=== PATIENT | male | born 1980 | race Two or more races ===

== ENCOUNTER → 2016-06-27 | Outpatient (REF) | payer OTHER ==
[2016-06-27 12:45] LABS: BASO % 0.4 % (0.0-1.0); LARGE UNSTAINED CELL # 0.1 K/mm3 (0.0-0.4); LARGE UNSTAINED CELL % 1.4 % (0.0-4.0); LYMPH # 1.4 K/mm3 (1.5-4.5); LYMPH % 27.3 % (24.0-44.0); MEAN CORPUSCULAR HEMOGLOBIN 27.8 pg (27.0-33.0); MEAN CORPUSCULAR HGB CONC 32.9 g/dl (32.0-36.5); MEAN CORPUSCULAR VOLUME 84.7 fl (80.0-96.0); MONO # 0.4 K/mm3 (0.0-0.8); MONO % 7.2 % (0.0-5.0); NEUTROPHILS # 3.1 K/mm3 (1.8-7.7); NEUTROPHILS % 62.8 % (36.0-66.0); PLATELET COUNT, AUTOMATED 201 k/mm3 (150-450); RED CELL DISTRIBUTION WIDTH 11.9 % (11.5-14.5); WHITE BLOOD COUNT 4.9 K/mm3 (4.0-10.0)
[2016-06-27 12:55] LABS: ALBUMIN 4.5 GM/DL (3.2-5.2); ALBUMIN/GLOBULIN RATIO 1.61 (1.00-1.93); ALKALINE PHOSPHATASE 43 U/L (45-117); ALT/SGPT 44 U/L (12-78); ANION GAP 9 MEQ/L (8-16); AST/SGOT 22 U/L (15-37); BILIRUBIN,TOTAL 0.8 MG/DL (0.2-1.0); BLOOD UREA NITROGEN 12 MG/DL (7-18); CALCIUM LEVEL 9.8 MG/DL (8.5-10.1); CARBON DIOXIDE LEVEL 29 MEQ/L (21-32); CHLORIDE LEVEL 103 MEQ/L (98-107); CHOLESTEROL LEVEL 134 MG/DL (<200); CREATININE FOR GFR 0.94 MG/DL (0.70-1.30); GLOMERULAR FILTRATION RATE > 60.0 (>60); GLUCOSE, FASTING 101 MG/DL (70-105); POTASSIUM SERUM 4.5 MEQ/L (3.5-5.1); SODIUM LEVEL 141 MEQ/L (136-145); TOTAL PROTEIN 7.3 GM/DL (6.4-8.2); TRIGLYCERIDES LEVEL 75 MG/DL (<150)
== END ==
LOC: M SFHCADAM 10:02
PROVIDERS: ATTEND Family Medicine
DX: Z00.00 Encounter for general adult medical examination without abnormal findings (principal)

== ENCOUNTER → 2016-09-19 | Outpatient (CLI) | payer OTHER ==
[~2016-09-19] VITALS: Ht 177.8 cm; Wt 80.7 kg
[~2016-09-19] MED LIST: LIDOCAINE 2% INJ 100 MG/5 ML SDV (FOR ANES.) As Ordered ONE; NS 1,000 ML IV ONE; PANT40TA2 PO; PROPOFOL 200 MG/20 ML VIAL As Ordered ONE; fentaNYL 100 MCG/2 ML INJECTION (J3010) As Ordered ONE
--- NOTE | 2016-09-19 15:25 | ROOR ---
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 No Referring Physician 1. No Referring Physician, Admin. Requesting Provider: Medicines: Monitored Anesthesia Care Complications: No immediate complications. Procedure: Pre-Anesthesia Assessment: - The heart rate, respiratory rate, oxygen saturations, blood pressure, adequacy of pulmonary ventilation, and response to care were monitored throughout the procedure. The Endoscope was introduced through the mouth, and advanced to the second part of duodenum. The upper GI endoscopy was accomplished without difficulty. The patient tolerated the procedure well. Findings: The Z-line was variable and was found 35 to 37 cm from the incisors. (three fingers/tongues of salmon colored mucosa from 35 to 37 cm from incisors suspicious for recurrent barretts esophagus.) This was biopsied with a cold forceps for histology. The entire examined stomach was normal. The examined duodenum was normal. Impression: - Z-line variable, 35 to 37 cm from the incisors (three tongues of salmon colored mucosa fro 35 to 37 cm suggestive of recurrent barretts esophagus). Biopsied. - Normal stomach. - Normal examined duodenum. Recommendation: - Use Protonix (pantoprazole) 40 mg PO BID indefinitely. - Telephone endoscopist for pathology results in 2 weeks. - (If biopsies show recurrent barretts esophagus, consideration may be given to repeat ablation treatment) Gary Jay MD Gary JAY MD 09/19/2016 3:24:46 PM This report has been signed electronically. Number of Addenda: 0 Note Initiated On: 09/19/2016 2:53 PM Estimated Blood Loss: Estimated blood loss: none.
[2016-09-19 15:40] VITALS: BP 137/86
== END ==
LOC: M OPP 12:39
PROVIDERS: ATTEND Internal Medicine Gastroenterology
DX: Z09 Encounter for follow-up examination after completed treatment for conditions other than malignant neoplasm (principal); K22.70 Barrett's esophagus without dysplasia; K22.8 Other specified diseases of esophagus; K21.9 Gastro-esophageal reflux disease without esophagitis; F17.200 Nicotine dependence, unspecified, uncomplicated; Z79.899 Other long term (current) drug therapy

== ENCOUNTER 2017-01-01 06:32 | Day surgery (SDC) | payer OTHER ==
[~2017-01-01] VITALS: Ht 177.8 cm; Wt 79.4 kg
[~2017-01-01 06:32] MED LIST changes: +DEXI60CA2 PO; -LIDOCAINE 2% INJ 100 MG/5 ML SDV (FOR ANES.) As Ordered ONE; -NS 1,000 ML IV ONE; -PROPOFOL 200 MG/20 ML VIAL As Ordered ONE; -fentaNYL 100 MCG/2 ML INJECTION (J3010) As Ordered ONE
[2017-01-01] MEDS ORDERED: LR 1,000 ML IV SCH ×2 (06:45→08:15)
[2017-01-01] MEDS ORDERED: SUCCINYLCHOLINE 100 MG/5 ML SYRINGE (J0330) As Ordered ONE (07:11)
[2017-01-01] MEDS ORDERED: ROCURONIUM BROMIDE 50 MG/5 ML VIAL/SYRINGE As Ordered ONE (07:11)
[2017-01-01] MEDS ORDERED: PROPOFOL 200 MG/20 ML VIAL As Ordered ONE (07:12)
[2017-01-01] MEDS ORDERED: ONDANSETRON 4MG/2ML VIAL (J2405) As Ordered ONE (07:12)
[2017-01-01] MEDS ORDERED: MIDAZOLAM INJ 2 MG/2 ML VIAL (J2250) As Ordered ONE (07:12)
[2017-01-01] MEDS ORDERED: fentaNYL 100 MCG/2 ML INJECTION (J3010) As Ordered ONE (07:42)
--- NOTE | 2017-01-01 08:10 | ROOR ---
Patient Name: Desmond Diaz Procedure Date: 01/01/2017 7:20 AM Date of : 1980 Age: 36 Room: Main OR Gender: Male Note Status: Finalized Procedure: Upper GI endoscopy Indications: For therapy of Covington's esophagus Providers: Gary JAY MD Referring MD: 1. No Referring Physician 1. No Referring Physician, Admin. Requesting Provider: Medicines: General Anesthesia Complications: No immediate complications. Procedure: Pre-Anesthesia Assessment: - The heart rate, respiratory rate, oxygen saturations, blood pressure, adequacy of pulmonary ventilation, and response to care were monitored throughout the procedure. The Endoscope was introduced through the mouth, and advanced to the second part of duodenum. The upper GI endoscopy was accomplished without difficulty. The patient tolerated the procedure well. Findings: The esophagus and gastroesophageal junction were examined with white light and narrow band imaging (NBI) from a forward view and retroflexed position. There were esophageal mucosal changes consistent with short-segment Covington's esophagus. These changes involved the mucosa at the upper extent of the gastric folds (40 cm from the incisors) extending to the Z-line (37 cm from the incisors). Circumferential salmon-colored mucosa was present from 37 to 39 cm and three tongues of salmon-colored mucosa were present from 39 to 40 cm. The maximum longitudinal extent of these esophageal mucosal changes was 3 cm in length. Circumferential radiofrequency ablation of Covington's esophagus was performed using the [employer] 360 Express catheter and balloon-based endoscopic ablation system. With the endoscope in place, the position and extent of the Covington's mucosa and the anatomic landmarks were noted. Endoscopic visualization identified an ablation site including the entire visible Covington's segment. The Covington's mucosa was irrigated with water. A guidewire was passed down the biopsy channel of the endoscope. As the endoscope was withdrawn from the mouth, the guidewire was left in place. An auto-sizing radiofrequency ablation balloon catheter was passed transorally over the guidewire into the esophagus. The endoscope was introduced in a [id number] manner with the ablation catheter. Under direct endoscopic visualization, the balloon ablation catheter was positioned appropriately. The balloon was automatically inflated, and energy was applied at 10 J/cm2. The balloon electrode was moved 4 cm distally, so that the proximal edge of the electrode was aligned with the distal edge of the ablation zone. The process of balloon inflation and ablation was repeated until the top of the gastric folds was reached. The ablation catheter and guidewire were removed, and the balloon was cleaned. The ablation zone was then cleaned of overlying coagulative debris using irrigation and suction via the endoscope and a cleaning cap. The guidewire was reinserted, and then the ablation catheter was reintroduced into the esophagus over the wire. The ablation catheter was positioned under direct endoscopic visualization so that the proximal edge of the electrode was at the proximal edge of the ablation zone. Reinflation and a second round of ablation were performed with the application of 10 J/cm2 to re-treat the Covington's epithelium already treated with the first round of ablation. The ablation catheter and guidewire were then removed. The areas of the esophagus where Covington's mucosa had been ablated were then examined with the endoscope. Areas of visible Covington's esophagus were completely ablated. Small Hiatal Hernia. The exam was otherwise without abnormality. Impression: - Esophageal mucosal changes consistent with short-segment Covington's esophagus. Treated with radiofrequency ablation. - Small Hiatal Hernia. - The examination was otherwise normal. - No specimens collected. Recommendation: - Repeat upper endoscopy in 3 months for retreatment. - My Office will call you shortly to re-schedule for the next treatment session. Start a full liquid diet today. Eat a soft diet for one week. Continue your usual Reflux medication (dexilant) indefinitely. You may not need pain medications, but I would recommend you fill the scripts provided, just in case: 1) Viscous Lidocaine 2%- 5 ml every 4 hrs as needed for modeate chest pain. 2) Carafate suspension-10 ml every 6-8 hrs for 1 month. Gary Jay MD Gary JAY MD 01/01/2017 8:10:16 AM This report has been signed electronically. Number of Addenda: 0 Note Initiated On: 01/01/2017 7:20 AM Estimated Blood Loss: Estimated blood loss: none.
[2017-01-01] MEDS ORDERED: ONDANSETRON 4MG/2ML VIAL (J2405) IV PRN (08:15)
[2017-01-01] MEDS ORDERED: PERCOCET 5MG/325MG TAB PO PRN (08:15)
[2017-01-01] MEDS ORDERED: fentaNYL 100 MCG/2 ML INJECTION (J3010) IV PRN (08:15)
[2017-01-01 09:25] VITALS: BP 121/74
== END 2017-01-01 09:57 | disposition home or self-care (01) ==
LOC: M SDC 06:32
PROVIDERS: ATTEND Internal Medicine Gastroenterology
DX: K22.70 Barrett's esophagus without dysplasia (principal); K44.9 Diaphragmatic hernia without obstruction or gangrene; Z79.899 Other long term (current) drug therapy; Z72.0 Tobacco use

== ENCOUNTER → 2017-03-24 | Outpatient (CLI) | payer OTHER ==
[2017-03-24 19:18] LABS: BASO % 0.4 % (0.0-1.0); EOS # 0.1 10^3/uL (0.0-0.50); EOS % 1.6 % (0.0-3.0); IMMATURE GRANULOCYTE % 0.1 % (0-0); LYMPH # 1.4 10^3/uL (1.5-4.5); LYMPH % 20.8 % (24.0-44.0); MEAN CORPUSCULAR HEMOGLOBIN 27.5 pg (27.0-33.0); MEAN CORPUSCULAR HGB CONC 32.4 g/dl (32.0-36.5); MONO # 0.6 10^3/uL (0.0-0.8); NEUTROPHILS # 4.5 10^3/uL (1.8-7.7); NEUTROPHILS % 68.1 % (36.0-66.0); PLATELET COUNT, AUTOMATED 229 10^3/uL (150-450); RED CELL DISTRIBUTION WIDTH 12.8 % (11.5-14.5); WHITE BLOOD COUNT 6.7 10^3/uL (4.0-10.0)
[2017-03-24 19:46] LABS: ALBUMIN 4.5 GM/DL (3.2-5.2); ALKALINE PHOSPHATASE 48 U/L (45-117); ALT/SGPT 27 U/L (12-78); ANION GAP 8 MEQ/L (8-16); AST/SGOT 17 U/L (7-37); BILIRUBIN,TOTAL 0.6 MG/DL (0.2-1.0); BLOOD UREA NITROGEN 13 MG/DL (7-18); CALCIUM LEVEL 9.1 MG/DL (8.5-10.1); CARBON DIOXIDE LEVEL 30 MEQ/L (21-32); CHLORIDE LEVEL 104 MEQ/L (98-107); FREE T4 0.95 NG/DL (0.76-1.46); GLOMERULAR FILTRATION RATE > 60.0 (>60); GLUCOSE, FASTING 93 MG/DL (70-105); POTASSIUM SERUM 4.8 MEQ/L (3.5-5.1); SODIUM LEVEL 142 MEQ/L (136-145); TOTAL PROTEIN 7.5 GM/DL (6.4-8.2)
[2017-03-27 00:07] LABS: Lyme Disease IgG/IgM Antibodie <0.91 ISR (0.00-0.90); Lyme Disease IgM Ab Quantitati <0.80 index (0.00-0.79)
== END ==
LOC: M ADAMS 15:13
PROVIDERS: ATTEND Physician Assistant
DX: R53.83 Other fatigue (principal)

== ENCOUNTER 2017-04-28 11:22 | Day surgery (SDC) | payer OTHER ==
[2017-04-28] MEDS: LR 1,000 ML IV (12:00)
[2017-04-28] MEDS ORDERED: LIDOCAINE 2% INJ 100 MG/5 ML SDV (FOR ANES.) As Ordered (12:47)
[2017-04-28] MEDS ORDERED: SUCCINYLCHOLINE 100 MG/5 ML SYRINGE (J0330) As Ordered (12:47)
[2017-04-28] MEDS ORDERED: PROPOFOL 200 MG/20 ML VIAL As Ordered (12:47)
[2017-04-28] MEDS ORDERED: MIDAZOLAM INJ 2 MG/2 ML VIAL (J2250) As Ordered (12:48)
[2017-04-28] MEDS ORDERED: fentaNYL 100 MCG/2 ML INJECTION (J3010) As Ordered (12:48)
[2017-04-28] MEDS ORDERED: ONDANSETRON 4MG/2ML VIAL (J2405) As Ordered (13:31)
[2017-04-28] MEDS: ACETYLCYSTEINE 20% 30 ML VIAL As Ordered (14:20)
[2017-04-28] MEDS ORDERED: ONDANSETRON 4MG/2ML VIAL (J2405) IV (14:30)
[2017-04-28] MEDS: fentaNYL 100 MCG/2 ML INJECTION (J3010) IV ×3 (14:30→14:40)
[2017-04-28] MEDS ORDERED: LR 1,000 ML IV (14:30)
== END 2017-04-28 15:35 | disposition home or self-care (01) ==
LOC: M SDC 11:22
DX: K22.70 Barrett's esophagus without dysplasia (principal); M12.9 Arthropathy, unspecified; Z79.899 Other long term (current) drug therapy; Z72.0 Tobacco use
CPT/HCPCS: 43270

== ENCOUNTER 2017-07-28 12:48 | Day surgery (SDC) | payer OTHER, SELFPAY ==
[2017-07-28] MEDS: NS 1,000 ML IV (13:00)
[2017-07-28] MEDS ORDERED: PROPOFOL 200 MG/20 ML VIAL As Ordered ×2 (13:36→14:12)
[2017-07-28] MEDS ORDERED: MIDAZOLAM INJ 2 MG/2 ML VIAL (J2250) As Ordered (13:51)
== END 2017-07-28 14:50 | disposition home or self-care (01) ==
LOC: M OPP 14:50
DX: K22.70 Barrett's esophagus without dysplasia (principal); K44.9 Diaphragmatic hernia without obstruction or gangrene; M12.9 Arthropathy, unspecified; F17.210 Nicotine dependence, cigarettes, uncomplicated; Z79.899 Other long term (current) drug therapy; Z80.3 Family history of malignant neoplasm of breast; Z09 Encounter for follow-up examination after completed treatment for conditions other than malignant neoplasm
CPT/HCPCS: 43270

== ENCOUNTER 2018-04-13 12:42 | Day surgery (SDC) | payer OTHER ==
[~2018-04-13] VITALS: Ht 177.8 cm; Wt 85.6 kg
[~2018-04-13 12:42] MED LIST changes: +LIDOCAINE 2% INJ 100 MG/5 ML SDV (FOR ANES.) As Ordered ONE; -PANT40TA2 PO; +PANT40TA3 PO; +PROPOFOL 200 MG/20 ML VIAL As Ordered ONE; +RABE1TAB PO
[2018-04-13] MEDS ORDERED: NS 1,000 ML IV ONE (13:15)
[2018-04-13] MEDS ORDERED: PROPOFOL 200 MG/20 ML VIAL As Ordered ONE ×2 (14:16→14:24)
--- NOTE | 2018-04-13 14:31 | ROOR ---
Patient Name: Desmond Diaz Procedure Date: 04/13/2018 1:29 PM Date of : 1980 Age: 38 Room: [facility] Gender: Male Note Status: Finalized Procedure: Upper GI endoscopy Indications: Follow-up of previous radiofrequency ablation treatment of Covington's esophagus Providers: Gary JAY MD Referring MD: 1. No Referring Physician 1. No Referring Physician, Admin. Requesting Provider: Medicines: Monitored Anesthesia Care Complications: No immediate complications. Procedure: Pre-Anesthesia Assessment: - The heart rate, respiratory rate, oxygen saturations, blood pressure, adequacy of pulmonary ventilation, and response to care were monitored throughout the procedure. The Endoscope was introduced through the mouth, and advanced to the second part of duodenum. The upper GI endoscopy was accomplished without difficulty. The patient tolerated the procedure well. Findings: The Z-line was variable and was found at the gastroesophageal junction. Focal radiofrequency ablation of Covington's esophagus was performed. With the endoscope in place, the position and extent of the Covington's mucosa and the anatomic landmarks were noted. Endoscopic visualization identified an ablation site. The radiofrequency channel ablation catheter was introduced through the endoscope working channel. Covington's tissue was targeted. The endoscope with the ablation catheter was advanced to the areas of Covington's mucosa. The areas included islands of Covington's mucosa. The endoscope with the channel ablation catheter was positioned under direct visualization so that the catheter was placed in contact with the surface of the Covington's mucosa. Energy was applied twice at 12 J/cm2. A second round of ablation was then performed. Energy was applied twice at 12 J/cm2 to retreat the areas of Covington's epithelium that had been treated with the first series of ablation. The ablation catheter was removed through the endoscope working channel. The areas of the esophagus where Covington's mucosa had been ablated were examined. The endoscope was then removed. The exam was otherwise without abnormality. Impression: - Z-line variable and three 4-5 mm islands of barretts epithelium in the lower esophagus and GE junction. Treated with radiofrequency ablation. - The examination was otherwise normal. - No specimens collected. Recommendation: - Continue present medications. - Repeat upper endoscopy in 3 months to evaluate the response to therapy. - My office will call you to reschedule the procedure. Gary Jay MD Gary JAY MD 04/13/2018 2:30:44 PM This report has been signed electronically. Number of Addenda: 0 Note Initiated On: 04/13/2018 1:29 PM Estimated Blood Loss: Estimated blood loss: none.
[2018-04-13 14:50] VITALS: BP 113/71
== END 2018-04-13 15:11 | disposition home or self-care (01) ==
LOC: M OPP 12:42
PROVIDERS: ATTEND Internal Medicine Gastroenterology
DX: K22.70 Barrett's esophagus without dysplasia (principal); K22.8 Other specified diseases of esophagus

== ENCOUNTER 2019-02-22 12:38 | Day surgery (SDC) | payer OTHER ==
[~2019-02-22] VITALS: Ht 177.8 cm; Wt 86.2 kg
[~2019-02-22 12:38] MED LIST changes: -LIDOCAINE 2% INJ 100 MG/5 ML SDV (FOR ANES.) As Ordered ONE; +NS 1,000 ML IV ONE; -PROPOFOL 200 MG/20 ML VIAL As Ordered ONE
[2019-02-22] MEDS ORDERED: LIDOCAINE 2% INJ 100 MG/5 ML SDV (FOR ANES.) As Ordered ONE (13:39)
[2019-02-22] MEDS ORDERED: PROPOFOL 200 MG/20 ML VIAL As Ordered ONE ×3 (13:39→14:29)
--- NOTE | 2019-02-22 14:06 | ROOR ---
Patient Name: Desmond Diaz Procedure Date: 02/22/2019 1:49 PM Date of : 1980 Age: 39 Room: [facility] Gender: Male Note Status: Finalized Procedure: Upper GI endoscopy Indications: Esophageal reflux, Follow-up of previous ablation treatment of Covington's esophagus Providers: Gary JAY MD Referring MD: Gary JAY MD Requesting Provider: Medicines: Monitored Anesthesia Care Complications: No immediate complications. Procedure: Pre-Anesthesia Assessment: - The heart rate, respiratory rate, oxygen saturations, blood pressure, adequacy of pulmonary ventilation, and response to care were monitored throughout the procedure. The Endoscope was introduced through the mouth, and advanced to the second part of duodenum. The upper GI endoscopy was accomplished without difficulty. The patient tolerated the procedure well. Findings: The Z-line was variable and was found 36 to 37 cm from the incisors. This was biopsied with a cold forceps for histology. The exam of the esophagus was otherwise normal. Small Hiatal Hernia. The entire examined stomach was normal. The examined duodenum was normal. Impression: - Z-line variable, 36 to 37 cm from the incisors. Biopsied. - Small intermittent sliding hiatal hernia. - Normal stomach. - Normal examined duodenum. Recommendation: - Continue present medications. - Telephone endoscopist for pathology results in 2 weeks. - Repeat upper endoscopy for surveillance based on pathology results. - (Likely repeat EGD in 3 years for barretts esophagus surveillance) Gary Jay MD Gary JAY MD 02/22/2019 2:06:03 PM Electronically signed by Gary JAY MD Number of Addenda: 0 Note Initiated On: 02/22/2019 1:49 PM Estimated Blood Loss: Estimated blood loss: none.
[2019-02-22 14:35] VITALS: BP 114/69
== END 2019-02-22 15:10 | disposition home or self-care (01) ==
LOC: M OPP 12:38
PROVIDERS: ATTEND Internal Medicine Gastroenterology
DX: K22.8 Other specified diseases of esophagus (principal); K21.9 Gastro-esophageal reflux disease without esophagitis; K22.70 Barrett's esophagus without dysplasia; Z09 Encounter for follow-up examination after completed treatment for conditions other than malignant neoplasm; K44.9 Diaphragmatic hernia without obstruction or gangrene; F17.210 Nicotine dependence, cigarettes, uncomplicated; Z79.899 Other long term (current) drug therapy

== ENCOUNTER → 2020-03-01 | Outpatient (CLI) | payer OTHER ==
[~2020-03-01] MED LIST changes: -NS 1,000 ML IV ONE; +PANT40TA29 PO; -PANT40TA3 PO
== END ==
LOC: M LABSMTC 09:48
PROVIDERS: ATTEND Anesthesiology
DX: Z01.812 Encounter for preprocedural laboratory examination (principal); Z20.828 Contact with and (suspected) exposure to other viral communicable diseases

== ENCOUNTER 2020-03-06 15:15 | Day surgery (SDC) | payer OTHER ==
[~2020-03-06] VITALS: Ht 177.8 cm; Wt 83.9 kg
[~2020-03-06 15:15] MED LIST changes: +NS 1,000 ML IV ONE
[2020-03-06] MEDS ORDERED: LIDOCAINE 2% 100MG/5ML SDV (FOR ANES.) As Ordered ONE (15:27)
[2020-03-06] MEDS ORDERED: propofoL 200 MG/20 ML VIAL As Ordered ONE ×2 (15:27→17:01)
[2020-03-06] MEDS ORDERED: DEXI60CA2 PO (15:36)
[2020-03-06] MEDS ORDERED: fentaNYL 100 MCG/2 ML INJECTION (J3010) As Ordered ONE (16:58)
--- NOTE | 2020-03-06 17:17 | ROOR ---
Patient Name: Desmond Diaz Procedure Date: 03/06/2020 4:55 PM Date of : 1980 Age: 40 Room: OP02 Gender: Male Note Status: Finalized Procedure: Upper GI endoscopy Indications: Follow-up of previous radiofrequency ablation treatment of Covington's esophagus, Surveillance after eradication of Covington's esophagus Providers: Gary JAY MD Referring MD: Kristen Serna NP Requesting Provider: Medicines: Monitored Anesthesia Care Complications: No immediate complications. Procedure: Pre-Anesthesia Assessment: - The heart rate, respiratory rate, oxygen saturations, blood pressure, adequacy of pulmonary ventilation, and response to care were monitored throughout the procedure. The Endoscope was introduced through the mouth, and advanced to the second part of duodenum. The upper GI endoscopy was accomplished without difficulty. The patient tolerated the procedure well. Findings: The Z-line was variable and was found 37 cm from the incisors. Biopsies were taken with a cold forceps for histology. The exam was otherwise without abnormality. A small hiatal hernia was present. Impression: - Z-line variable, 37 cm from the incisors. The esophagus is otherwise normal. Biopsied. - Small hiatal hernia. - The examination was otherwise normal. Recommendation: - Await pathology results. - Repeat upper endoscopy for surveillance based on pathology results. - Telephone endoscopist for pathology results in 2 weeks. Procedure Code(s): --- Professional --- 42375, Esophagogastroduodenoscopy, flexible, transoral; with biopsy, single or multiple Diagnosis Code(s): --- Professional --- K22.8, Other specified diseases of esophagus K22.70, Covington's esophagus without dysplasia K44.9, Diaphragmatic hernia without obstruction or gangrene Z09, Encounter for follow-up examination after completed treatment for conditions other than malignant neoplasm CPT copyright 2019 [employer]. All rights reserved. The codes documented in this report are preliminary and upon turbine assembler review may be revised to meet current compliance requirements. Gary Jay MD Gary JAY MD 03/06/2020 5:17:01 PM Electronically signed by Gary JAY MD Number of Addenda: 0 Note Initiated On: 03/06/2020 4:55 PM Estimated Blood Loss: Estimated blood loss: none.
[2020-03-06 17:33] VITALS: BP 119/75
== END 2020-03-06 17:37 | disposition home or self-care (01) ==
LOC: M OPP 15:15
PROVIDERS: ATTEND Internal Medicine Gastroenterology
DX: K22.8 Other specified diseases of esophagus (principal); K22.70 Barrett's esophagus without dysplasia; Z09 Encounter for follow-up examination after completed treatment for conditions other than malignant neoplasm; K44.9 Diaphragmatic hernia without obstruction or gangrene; F17.210 Nicotine dependence, cigarettes, uncomplicated
CPT/HCPCS: 43239; 88305; 88342; J3010

== ENCOUNTER → 2020-04-18 | Outpatient (REF) | payer OTHER ==
[~2020-04-18] MED LIST changes: -NS 1,000 ML IV ONE
== END ==
LOC: M SMT 17:14
PROVIDERS: ATTEND Urology
DX: Z30.2 Encounter for sterilization (principal)